=== PATIENT | female | born 1945 | race African-American/Black ===

== ENCOUNTER 2017-04-16 23:39 | Inpatient (IN) | payer MEDICARE, MEDICAID ==
[~2017-04-16] VITALS: Ht 160 cm; Wt 49.9 kg
[2017-04-16] MEDS ORDERED: SODIUM CHLORIDE 0.9% 500 ML IV ONE (23:59)
[2017-04-17] MEDS ORDERED: ASPIRIN 325MG EC TABLET PO ONE (00:15)
[2017-04-17 00:30] LABS: HEMATOCRIT. 41.1 % (36.0-48.0); HEMOGLOBIN. 13.3 g/dL (12.0-16.0); MEAN CORPUSCULAR HEMOGLOBIN 28.5 pg (28.0-32.0); MEAN CORPUSCULAR VOLUME 87.8 fL (81.0-99.0); MEAN PLATELET VOLUME 9.5 fl (7.4-10.4); PLATELET 210 x1000/uL (130-400); RED BLOOD CELL COUNT 4.68 mill/uL (4.2-5.4); RED CELL DISTRIBUTION WIDTH 15.9 % (11.6-14.6)
[2017-04-17 00:38] LABS: AMMONIA 30 uMol/L (<32)
[2017-04-17 00:48] LABS: CARBON DIOXIDE 27 mEq/L (21-32); CHLORIDE 101 mEq/L (98-107); CREATINE KINASE 41 IU/L (26-192); ETHANOL BLOOD < 10 mg/dL; TROPONIN I 0.18 ng/mL (0.00-0.04)
[2017-04-17 01:16] LABS: INR 1.4; PROTHROMBIN TIME 14.2 sec
[2017-04-17 02:17] LABS: PLATELET ESTIMATE NORMAL
[2017-04-17 08:54] LABS: CLARITY URINE CLOUDY (CLEAR); COLOR URINE YELLOW (YELLOW); GLUCOSE URINE NEGATIVE (NEGATIVE); KETONES URINE NEGATIVE (NEGATIVE); LEUKOCYTE ESTERASE URINE 1+ (NEGATIVE); NITRITE URINE NEGATIVE (NEGATIVE); OCCULT BLOOD URINE 3+ (NEGATIVE); PROTEIN URINE NEGATIVE (NEGATIVE); SPECIFIC GRAVITY URINE 1.015 (1.005-1.030)
[2017-04-17 09:29] LABS: *AMPHETAMINES SCREEN URINE NEGATIVE (NEGATIVE); *BARBITURATES SCREEN URINE NEGATIVE (NEGATIVE); *BENZODIAZEPINES SCREEN URINE NEGATIVE (NEGATIVE); *COCAINE SCREEN URINE NEGATIVE (NEGATIVE); CANNABINOID URINE SCREEN NEGATIVE (NEGATIVE); METHADONE URINE SCREEN NEGATIVE (NEGATIVE); OPIATES URINE SCREEN NEGATIVE (NEGATIVE); PHENCYCLIDINE URINE SCREEN NEGATIVE (NEGATIVE)
[2017-04-17 10:45] VITALS: BP 136/77
[2017-04-17] MEDS ORDERED: TRAM50TA3 PO (11:52)
[2017-04-17] MEDS ORDERED: AMLO10TA80 PO (11:52)
[2017-04-17] MEDS ORDERED: ALLO100T PO (11:52)
[2017-04-17] MEDS ORDERED: METO50TA5 PO (11:52)
[2017-04-17] MEDS ORDERED: IPRATROPIUM/ALBUTEROL 0.5-3(2.5)MG/3ML NEB INH PRN (12:00)
[2017-04-17] MEDS ORDERED: MAGNESIUM/ALUMINUM HYDROXIDE/SIMETHICONE 30ML UDC PO PRN (12:00)
[2017-04-17] MEDS ORDERED: GUAIFENESIN 200MG/10ML SUGAR FREE UDC PO PRN (12:00)
[2017-04-17] MEDS ORDERED: PAMIDRONATE DISODIUM 30 MG in SODIUM CHLORIDE 0.9% 500 ML IV NR (12:00)
[2017-04-17] MEDS ORDERED: NA PHOS,M-B/NA PHOS,DI-BA ENEMA 118ML PR PRN (12:00)
[2017-04-17] MEDS ORDERED: HYDROCODONE/ACETAMINOPHEN 10/325MG TABLET PO PRN (12:00)
[2017-04-17] MEDS ORDERED: DIPHENHYDRAMINE 50MG/ML VIAL IV PRN (12:00)
[2017-04-17] MEDS ORDERED: ACETAMINOPHEN 650MG/20.3ML UDC GT PRN (12:00)
[2017-04-17] MEDS ORDERED: DOCUSATE SODIUM 100MG CAPSULE PO PRN (12:00)
[2017-04-17] MEDS: SODIUM CHLORIDE 0.45% 1,000 ML IV SCH (13:46)
[2017-04-17] MEDS: SODIUM CHLORIDE 0.9% INJ 3ML FLUSH IVF SCH ×2 (13:47→21:39)
[2017-04-17 16:00] VITALS: BP 136/87
[2017-04-17 17:08] LABS: CARBON DIOXIDE 25 mEq/L (21-32); CHLORIDE 102 mEq/L (98-107)
[2017-04-17 20:00] VITALS: BP 112/81
[2017-04-18] VITALS: BP 123/73
[2017-04-18 04:00] VITALS: BP 135/79
[2017-04-18] MEDS: SODIUM CHLORIDE 0.45% 1,000 ML IV SCH ×3 (04:52→16:40)
[2017-04-18] MEDS: SODIUM CHLORIDE 0.9% INJ 3ML FLUSH IVF SCH ×3 (04:52→23:24)
[2017-04-18 08:00] VITALS: BP 119/60
[2017-04-18 11:53] LABS: BASOPHILS % 0.4 % (0.0-2.0); EOSINOPHILS % 0.6 % (0.0-5.0); HEMATOCRIT. 37.2 % (36.0-48.0); HEMOGLOBIN. 12.1 g/dL (12.0-16.0); LYMPHOCYTES % 7.5 % (20.0-50.0); MEAN CORPUSCULAR HEMOGLOBIN 28.5 pg (28.0-32.0); MEAN CORPUSCULAR VOLUME 87.4 fL (81.0-99.0); MEAN PLATELET VOLUME 9.2 fl (7.4-10.4); MONOCYTES % 8.4 % (2.0-8.0); NEUTROPHILS % 83.1 % (40.0-76.0); PLATELET 174 x1000/uL (130-400); RED BLOOD CELL COUNT 4.26 mill/uL (4.2-5.4); RED CELL DISTRIBUTION WIDTH 15.8 % (11.6-14.6)
[2017-04-18 12:00] VITALS: BP 138/76
[2017-04-18 12:00] LABS: INR 1.4; PROTHROMBIN TIME 14.7 sec
[2017-04-18 13:04] LABS: PREALBUMIN 8.3 mg/dL (20.0-40.0); T4 FREE 0.7 ng/dL (0.76-1.46)
[2017-04-18 16:00] VITALS: BP 129/88
[2017-04-18] MEDS ORDERED: POTASSIUM CHLORIDE INJ 40 MEQ in DEXT 5% WATER 250 ML IV NR (16:00)
[2017-04-18] MEDS: ENOXAPARIN 60MG/0.6ML SYR SUBCUT SCH (16:39)
[2017-04-18 18:49] LABS: CREATINE KINASE MB FRACTION 2.7 ng/mL (0.5-3.6); TROPONIN I 0.14 ng/mL (0.00-0.04)
[2017-04-18 20:00] VITALS: BP 101/66
[2017-04-19] VITALS: BP 119/85
[2017-04-19 00:44] LABS: CREATINE KINASE MB FRACTION 2.2 ng/mL (0.5-3.6); TROPONIN I 0.15 ng/mL (0.00-0.04)
[2017-04-19 04:00] VITALS: BP 125/85
[2017-04-19 06:36] LABS: INR 1.4; PARTIAL THROMBOPLASTIN TIME 36.5 sec (24.0-34.0); PROTHROMBIN TIME 14.2 sec
[2017-04-19 06:47] LABS: BASOPHILS % 0.2 % (0.0-2.0); EOSINOPHILS % 0.3 % (0.0-5.0); HEMATOCRIT. 37.5 % (36.0-48.0); HEMOGLOBIN. 12.1 g/dL (12.0-16.0); LYMPHOCYTES % 7.9 % (20.0-50.0); MEAN CORPUSCULAR HEMOGLOBIN 28.4 pg (28.0-32.0); MONOCYTES % 10.8 % (2.0-8.0); NEUTROPHILS % 80.8 % (40.0-76.0); PLATELET 176 x1000/uL (130-400); RED BLOOD CELL COUNT 4.26 mill/uL (4.2-5.4)
[2017-04-19] MEDS: SODIUM CHLORIDE 0.9% INJ 3ML FLUSH IVF SCH ×3 (06:59→20:46)
[2017-04-19 07:42] VITALS: BP 136/91
[2017-04-19 07:42] LABS: CREATINE KINASE MB FRACTION 2.7 ng/mL (0.5-3.6); PHOSPHORUS 3.4 mg/dL (2.5-4.9); TROPONIN I 0.16 ng/mL (0.00-0.04)
[2017-04-19] MEDS ORDERED: DIATR MEGLU/DIATRIZOATE SOLN 30ML PO SCH (07:45)
[2017-04-19] MEDS: ENOXAPARIN 60MG/0.6ML SYR SUBCUT SCH (09:00)
[2017-04-19] MEDS ORDERED: DIATR MEGLU/DIATRIZOATE SOLN 120ML ONE (10:42)
[2017-04-19 11:46] VITALS: BP 149/92
[2017-04-19] MEDS: SODIUM CHLORIDE 0.45% 1,000 ML IV SCH (13:09)
[2017-04-19] MEDS ORDERED: METOPROLOL TARTRATE 5MG/5ML VIAL IV NR (19:45)
[2017-04-19 20:00] VITALS: BP 115/74
[2017-04-19] MEDS: ONDANSETRON HCL 4MG/2ML VIAL IV PRN (20:44)
[2017-04-20] VITALS: BP 143/83
[2017-04-20 04:00] VITALS: BP 127/81
[2017-04-20] MEDS: ONDANSETRON HCL 4MG/2ML VIAL IV PRN ×2 (04:56→21:19)
[2017-04-20] MEDS: SODIUM CHLORIDE 0.45% 1,000 ML IV SCH ×4 (05:00→21:20)
[2017-04-20 08:00] VITALS: BP 125/79
[2017-04-20 09:11] LABS: HEMATOCRIT. 36.6 % (36.0-48.0); MEAN CORPUSCULAR HEMOGLOBIN 28.4 pg (28.0-32.0); MEAN CORPUSCULAR VOLUME 86.6 fL (81.0-99.0); MEAN PLATELET VOLUME 9.4 fl (7.4-10.4); PLATELET 174 x1000/uL (130-400); RED BLOOD CELL COUNT 4.23 mill/uL (4.2-5.4); RED CELL DISTRIBUTION WIDTH 15.7 % (11.6-14.6)
[2017-04-20 09:16] LABS: INR 1.4; PARTIAL THROMBOPLASTIN TIME 36.2 sec (24.0-34.0)
[2017-04-20 09:26] LABS: IMMUNOGLOBULIN G 1153 mg/dL (700-1600); IMMUNOGLOBULIN M 63 mg/dL (26-217)
[2017-04-20 09:40] LABS: PHOSPHORUS 4.2 mg/dL (2.5-4.9)
[2017-04-20] MEDS: ENOXAPARIN 60MG/0.6ML SYR SUBCUT SCH (10:05)
[2017-04-20 12:52] VITALS: BP 127/83
[2017-04-20 13:07] LABS: A/G RATIO 0.8 (0.7-1.7); ALBUMIN 2.8 g/dL (2.9-4.4); ALPHA-1-GLOBULIN 0.3 g/dL (0.0-0.4); BETA GLOBULIN 1.1 g/dL (0.7-1.3); GAMMA GLOBULINS 1.1 g/dL (0.4-1.8); GLOBULIN TOTAL 3.5 g/dL (2.2-3.9); KAPPA LT CHAINS FREE SERUM 65.13 mg/L (3.30-19.40); KAPPA/LAMBDA RATIO 1.33 (0.26-1.65); M-SPIKE Not Observed g/dL (Not Observed); TOTAL PROTEIN SERUM 6.3 g/dL (6.0-8.5)
[2017-04-20] MEDS: SODIUM CHLORIDE 0.9% INJ 3ML FLUSH IVF SCH ×2 (13:18→21:19)
[2017-04-20 13:44] LABS: PLATELET ESTIMATE NORMAL
[2017-04-20 16:06] VITALS: BP 129/95
[2017-04-20 20:00] VITALS: BP 116/82
[2017-04-21] VITALS: BP 122/85
[2017-04-21 04:00] VITALS: BP 134/92
[2017-04-21] MEDS: SODIUM CHLORIDE 0.9% INJ 3ML FLUSH IVF SCH ×3 (05:45→21:08)
[2017-04-21] MEDS: SODIUM CHLORIDE 0.45% 1,000 ML IV SCH ×2 (05:45→11:33)
[2017-04-21] MEDS: ONDANSETRON HCL 4MG/2ML VIAL IV PRN ×2 (05:52→11:32)
[2017-04-21 06:30] LABS: BASOPHILS % 0.1 % (0.0-2.0); EOSINOPHILS % 0.1 % (0.0-5.0); HEMATOCRIT. 36.1 % (36.0-48.0); HEMOGLOBIN. 11.7 g/dL (12.0-16.0); LYMPHOCYTES % 9.2 % (20.0-50.0); MEAN CORPUSCULAR HEMOGLOBIN 28.5 pg (28.0-32.0); MEAN CORPUSCULAR VOLUME 87.7 fL (81.0-99.0); MONOCYTES % 11.4 % (2.0-8.0); NEUTROPHILS % 79.2 % (40.0-76.0); PLATELET 173 x1000/uL (130-400); RED BLOOD CELL COUNT 4.12 mill/uL (4.2-5.4); RED CELL DISTRIBUTION WIDTH 16.1 % (11.6-14.6)
[2017-04-21 06:49] LABS: CHLORIDE 97 mEq/L (98-107)
[2017-04-21 06:55] LABS: CARBON DIOXIDE 22 mEq/L (21-32); PHOSPHORUS 3.8 mg/dL (2.5-4.9)
[2017-04-21 08:49] VITALS: BP 124/79
[2017-04-21 09:27] LABS: IMMUNOGLOBULIN A 456 mg/dL (64-422)
[2017-04-21 12:00] VITALS: BP 117/83
[2017-04-21] MEDS ORDERED: SODIUM CHLORIDE 0.9% 1,000 ML IV NR (12:30)
[2017-04-21 12:46] LABS: BG BASE EXCESS -2.2 mmol/L (-2.0-2.0); BG DEOXYHEMOGLOBIN 1.5 % (0.0-5.0); BG FRACTION INSPIRED OXYGEN 26; BG HCO3 ACT 20.9 mmol/L (22.0-26.0); BG METHEMOGLOBIN 0.8 % (0.0-1.5); BG OXYGEN SATURATION 98.5 % (92.0-98.5); BG OXYHEMOGLOBIN 97.7 % (94.0-97.0); BG PCO2 30.8 mmHg (35.0-45.0); BG PH 7.449 (7.350-7.450); BG PO2 130.9 mmHg (75.0-100.0); BG SAMPLE SITE RIGHT BRACHIAL; BG TOTAL HEMOGLOBIN 12.5 g/dL (12.0-18.0); BG VENT MODE NASAL CANNULA
[2017-04-21 13:16] LABS: ANGIOTENSION CONVERTING ENZYME 38 U/L (14-82)
[2017-04-21] MEDS: SODIUM CHLORIDE 0.9% 1,000 ML IV SCH ×2 (13:41→21:07)
[2017-04-21 16:25] VITALS: BP 114/64
[2017-04-21 16:47] LABS: CLARITY URINE CLOUDY (CLEAR); COLOR URINE YELLOW (YELLOW); GLUCOSE URINE NEGATIVE (NEGATIVE); KETONES URINE TRACE (NEGATIVE); LEUKOCYTE ESTERASE URINE TRACE (NEGATIVE); NITRITE URINE NEGATIVE (NEGATIVE); OCCULT BLOOD URINE 2+ (NEGATIVE); PROTEIN URINE NEGATIVE (NEGATIVE); SPECIFIC GRAVITY URINE 1.015 (1.005-1.030); UROBILINOGEN URINE 0.2 E.U./dL (0.2-1.0)
[2017-04-21 17:05] LABS: CREATININE URINE RANDOM 87.3 mg/dL
[2017-04-21 19:55] VITALS: BP 100/77
[2017-04-22 00:10] VITALS: BP 130/88
[2017-04-22 01:57] LABS: BASOPHILS % 0.2 % (0.0-2.0); EOSINOPHILS % 0.3 % (0.0-5.0); HEMATOCRIT. 33.1 % (36.0-48.0); HEMOGLOBIN. 10.9 g/dL (12.0-16.0); MEAN CORPUSCULAR HEMOGLOBIN 28.6 pg (28.0-32.0); MEAN CORPUSCULAR VOLUME 87.1 fL (81.0-99.0); MEAN PLATELET VOLUME 9.4 fl (7.4-10.4); MONOCYTES % 10.8 % (2.0-8.0); NEUTROPHILS % 79.7 % (40.0-76.0); PLATELET 161 x1000/uL (130-400); RED CELL DISTRIBUTION WIDTH 15.9 % (11.6-14.6)
[2017-04-22 02:53] LABS: PHOSPHORUS 3.9 mg/dL (2.5-4.9)
[2017-04-22] MEDS: SODIUM CHLORIDE 0.9% 1,000 ML IV SCH ×4 (03:33→23:17)
[2017-04-22 04:00] VITALS: BP 124/71
[2017-04-22] MEDS ORDERED: BUPIVACAINE HCL 0.5% (5MG/ML) 50ML ONE (06:53)
[2017-04-22] MEDS ORDERED: FENTANYL CITRATE/PF 50MCG/ML 2ML VIAL ONE (07:49)
[2017-04-22] MEDS ORDERED: MIDAZOLAM HCL 2 MG/2 ML VIAL ONE (07:49)
[2017-04-22] MEDS ORDERED: DEXT 5%/0.45% NACL KCL 20MEQ/L 1,000 ML IV SCH (07:58)
[2017-04-22] MEDS ORDERED: MORPHINE SULFATE 4 MG/ML CPJ (NOT FOR IM USE) IV PRN (08:00)
[2017-04-22] MEDS ORDERED: ONDANSETRON HCL 4MG/2ML VIAL IV PRN ×2 (08:00→08:30)
[2017-04-22] MEDS ORDERED: SKIN ADHESIVE 0.7 GM EA TOP ONE (08:07)
[2017-04-22] MEDS ORDERED: LABETALOL HCL 20MG/4ML CARPUJECT IV PRN (08:30)
[2017-04-22] MEDS ORDERED: HYDROMORPHONE HCL/PF 2MG/ML CPJ IV PRN (08:30)
[2017-04-22] MEDS ORDERED: MEPERIDINE HCL/PF 25MG/ML CPJ IV PRN (08:30)
[2017-04-22] MEDS ORDERED: GLYCOPYRROLATE 0.2 MG/ML 2ML VIAL ONE (08:54)
[2017-04-22] MEDS ORDERED: NEOSTIGMINE METHYLSULFATE 1MG/ML 10 ML VIAL ONE (08:54)
[2017-04-22 09:51] LABS: BG BASE EXCESS -7.8 mmol/L (-2.0-2.0); BG CARBOXYHEMOGLOBIN 0.3 % (0.5-1.5); BG DEOXYHEMOGLOBIN 0.7 % (0.0-5.0); BG FRACTION INSPIRED OXYGEN 100; BG METHEMOGLOBIN 0.8 % (0.0-1.5); BG OXYGEN SATURATION 99.3 % (92.0-98.5); BG OXYHEMOGLOBIN 98.2 % (94.0-97.0); BG PCO2 32.3 mmHg (35.0-45.0); BG PH 7.338 (7.350-7.450); BG PO2 255.8 mmHg (75.0-100.0); BG SAMPLE SITE RIGHT BRACHIAL; BG TIDAL VOLUME(mL) 500 mL; BG TOTAL HEMOGLOBIN 11.3 g/dL (12.0-18.0); BG VENT MODE VENT - A/C; BG VENT RATE 10 set
[2017-04-22] MEDS ORDERED: CEFAZOLIN 1000MG PREMIX 50 ML IV SCH (11:00)
[2017-04-22 11:56] LABS: BG BASE EXCESS -6.7 mmol/L (-2.0-2.0); BG CARBOXYHEMOGLOBIN 0.3 % (0.5-1.5); BG DEOXYHEMOGLOBIN 1.3 % (0.0-5.0); BG FRACTION INSPIRED OXYGEN 60; BG HCO3 ACT 17.3 mmol/L (22.0-26.0); BG METHEMOGLOBIN 0.6 % (0.0-1.5); BG OXYGEN SATURATION 98.7 % (92.0-98.5); BG OXYHEMOGLOBIN 97.8 % (94.0-97.0); BG PH 7.379 (7.350-7.450); BG PO2 148.8 mmHg (75.0-100.0); BG SAMPLE SITE RIGHT BRACHIAL; BG TOTAL HEMOGLOBIN 11.1 g/dL (12.0-18.0); BG VENT MODE MASK - SIMPLE
[2017-04-22 12:00] VITALS: BP 121/87
[2017-04-22 13:26] LABS: 25-HYDROXY VITAMIN D3 13 ng/mL (.); VITAMIN D 1-25 DIHYDROXY < 5.0 pg/mL (19.9-79.3)
[2017-04-22] MEDS: CEFAZOLIN 1000MG PREMIX 50 ML IV SCH ×2 (13:47→22:46)
[2017-04-22] MEDS: FAMOTIDINE 20MG/2ML VIAL IV SCH (13:48)
[2017-04-22] MEDS: MORPHINE SULFATE 2 MG/ML CPJ (NOT FOR IM USE) IV PRN (13:59)
[2017-04-22] MEDS: SODIUM CHLORIDE 0.9% INJ 3ML FLUSH IVF SCH ×2 (14:00→15:46)
[2017-04-22 16:00] VITALS: BP 107/72
[2017-04-22 20:00] VITALS: BP 109/74
[2017-04-23] VITALS: BP 117/75
[2017-04-23] MEDS: MORPHINE SULFATE 2 MG/ML CPJ (NOT FOR IM USE) IV PRN ×3 (00:12→17:16)
[2017-04-23 04:00] VITALS: BP 109/69
[2017-04-23] MEDS: SODIUM CHLORIDE 0.9% 1,000 ML IV SCH ×2 (05:59→15:04)
[2017-04-23] MEDS: SODIUM CHLORIDE 0.9% INJ 3ML FLUSH IVF SCH ×4 (06:02→21:28)
[2017-04-23 06:25] LABS: HEMATOCRIT. 30.4 % (36.0-48.0); HEMOGLOBIN. 9.9 g/dL (12.0-16.0); MEAN CORPUSCULAR HEMOGLOBIN 28.4 pg (28.0-32.0); MEAN CORPUSCULAR VOLUME 87.6 fL (81.0-99.0); MEAN PLATELET VOLUME 9.6 fl (7.4-10.4); PLATELET 148 x1000/uL (130-400); RED BLOOD CELL COUNT 3.47 mill/uL (4.2-5.4)
[2017-04-23 06:29] LABS: INR 1.6; PARTIAL THROMBOPLASTIN TIME 43.4 sec (24.0-34.0); PROTHROMBIN TIME 16.5 sec
[2017-04-23 07:35] LABS: PHOSPHORUS 2.7 mg/dL (2.5-4.9); PREALBUMIN 4.5 mg/dL (20.0-40.0)
[2017-04-23 08:00] VITALS: BP 119/76
[2017-04-23] MEDS: FAMOTIDINE 20MG/2ML VIAL IV SCH (08:25)
[2017-04-23 11:57] LABS: PLATELET ESTIMATE NORMAL
[2017-04-23 12:00] VITALS: BP 138/83
[2017-04-23 13:07] LABS: *CREATININE RANDOM URINE 99.6 mg/dL (Not Estab.); MICROALBUMIN RANDOM URINE 58.3 ug/mL (Not Estab.); MICROALBUMIN/CREATININE RATIO 58.5 mg/g creat (0.0-30.0)
[2017-04-23 14:32] LABS: BG BASE EXCESS -7.4 mmol/L (-2.0-2.0); BG CARBOXYHEMOGLOBIN 0.3 % (0.5-1.5); BG DEOXYHEMOGLOBIN 2.4 % (0.0-5.0); BG FRACTION INSPIRED OXYGEN 28; BG HCO3 ACT 16.7 mmol/L (22.0-26.0); BG METHEMOGLOBIN 0.6 % (0.0-1.5); BG OXYGEN SATURATION 97.6 % (92.0-98.5); BG OXYHEMOGLOBIN 96.7 % (94.0-97.0); BG PCO2 29.2 mmHg (35.0-45.0); BG PH 7.375 (7.350-7.450); BG PO2 103.2 mmHg (75.0-100.0); BG SAMPLE SITE RIGHT BRACHIAL; BG VENT MODE NASAL CANNULA
[2017-04-23] MEDS: METOPROLOL TARTRATE 25MG TABLET PO SCH ×2 (15:23→21:28)
[2017-04-23 16:00] VITALS: BP 152/96
[2017-04-23 20:00] VITALS: BP 129/80
[2017-04-23] MEDS: TOTAL PARENTERAL NUTRITION 1,000 ML IV SCH (21:57)
[2017-04-24] VITALS: BP 117/90
[2017-04-24] MEDS: BLOOD SUGAR DIAGNOSTIC STRIP TEST SCH ×2 (00:32)
[2017-04-24 04:00] VITALS: BP 144/101
[2017-04-24 05:27] LABS: HEMATOCRIT. 32.6 % (36.0-48.0); HEMOGLOBIN. 10.5 g/dL (12.0-16.0); MEAN CORPUSCULAR HEMOGLOBIN 28.7 pg (28.0-32.0); MEAN CORPUSCULAR VOLUME 89.1 fL (81.0-99.0); MEAN PLATELET VOLUME 9.3 fl (7.4-10.4); PLATELET 138 x1000/uL (130-400); RED BLOOD CELL COUNT 3.67 mill/uL (4.2-5.4); RED CELL DISTRIBUTION WIDTH 16.7 % (11.6-14.6)
[2017-04-24] MEDS: SODIUM CHLORIDE 0.9% INJ 3ML FLUSH IVF SCH ×3 (05:46→22:42)
[2017-04-24 06:42] LABS: PHOSPHORUS 1.4 mg/dL (2.5-4.9)
[2017-04-24 07:57] LABS: NUCLEATED RED BLOOD CELLS 2 /100 WBC; PLATELET ESTIMATE NORMAL
[2017-04-24 08:00] VITALS: BP 170/110
[2017-04-24] MEDS ORDERED: PHYTONADIONE 10MG/ML AMP SUBCUT SCH (09:00)
[2017-04-24] MEDS: FAMOTIDINE 20MG/2ML VIAL IV SCH (09:26)
[2017-04-24] MEDS: CLONIDINE 0.1MG TABLET PO PRN (09:27)
[2017-04-24] MEDS: METOPROLOL TARTRATE 25MG TABLET PO SCH ×2 (09:27→20:04)
[2017-04-24] MEDS: TOTAL PARENTERAL NUTRITION 1,000 ML IV SCH ×2 (09:28→22:55)
[2017-04-24] MEDS ORDERED: POTASSIUM PHOS,M-BASIC-D-BASIC 20 MMOL in DEXT 5% WATER 250 ML IV NR (11:30)
[2017-04-24] MEDS ORDERED: AMLODIPINE 10MG TABLET PO NR (11:30)
[2017-04-24 12:00] VITALS: BP 183/115
[2017-04-24] MEDS ORDERED: DEXTROSE 50% WATER 50ML SYRINGE IV PRN (12:00)
[2017-04-24] MEDS ORDERED: BLOOD SUGAR DIAGNOSTIC STRIP TEST SCH (12:10)
[2017-04-24] MEDS: INSULIN LISPRO 100 UNITS/ML SUBCUT SCH ×2 (12:31→17:28)
[2017-04-24] MEDS ORDERED: HYDROMORPHONE HCL/PF 2MG/ML CPJ IV PRN (14:00)
[2017-04-24] MEDS ORDERED: CLONIDINE HCL 0.2MG/24HR PATCH TD SCH (14:30)
[2017-04-24] MEDS: HYDRALAZINE HCL 25MG TABLET PO SCH ×2 (14:52→21:41)
[2017-04-24] MEDS: DEXTROSE 5% WATER 1,000 ML IV SCH (14:53)
[2017-04-24] MEDS ORDERED: POTASSIUM PHOS,M-BASIC-D-BASIC 10 MMOL in DEXT 5% WATER 246.6667 ML IV NR (15:00)
[2017-04-24 16:00] VITALS: BP 149/93
[2017-04-24] MEDS ORDERED: LORAZEPAM 2MG/ML CPJ IM NR (17:00)
[2017-04-24 17:41] LABS: AMMONIA 20 uMol/L (<32)
[2017-04-24 19:33] LABS: CLARITY URINE CLEAR (CLEAR); COLOR URINE YELLOW (YELLOW); GLUCOSE URINE 2+ (NEGATIVE); KETONES URINE NEGATIVE (NEGATIVE); LEUKOCYTE ESTERASE URINE NEGATIVE (NEGATIVE); NITRITE URINE NEGATIVE (NEGATIVE); OCCULT BLOOD URINE TRACE (NEGATIVE); PROTEIN URINE NEGATIVE (NEGATIVE); SPECIFIC GRAVITY URINE 1.014 (1.005-1.030); UROBILINOGEN URINE 0.2 E.U./dL (0.2-1.0)
[2017-04-24 20:00] VITALS: BP 153/93
[2017-04-24] MEDS: ACETAMINOPHEN 650MG SUPP PR PRN (21:42)
[2017-04-25] VITALS (7 sets, daily range): BP systolic 122–163; BP diastolic 77–99
[2017-04-25] MEDS: INSULIN LISPRO 100 UNITS/ML SUBCUT SCH ×5 (00:29→23:14)
[2017-04-25] MEDS: HYDRALAZINE HCL 25MG TABLET PO SCH ×3 (06:21→23:12)
[2017-04-25] MEDS: ACETAMINOPHEN 650MG SUPP PR PRN ×2 (06:48→12:50)
[2017-04-25 07:34] LABS: CARBON DIOXIDE 21 mEq/L (21-32); CHLORIDE 123 mEq/L (98-107)
[2017-04-25 07:54] LABS: EOSINOPHILS % 0.3 % (0.0-5.0); HEMATOCRIT. 31.6 % (36.0-48.0); HEMOGLOBIN. 10.2 g/dL (12.0-16.0); LYMPHOCYTES % 9.3 % (20.0-50.0); MEAN CORPUSCULAR VOLUME 86.5 fL (81.0-99.0); MONOCYTES % 8.8 % (2.0-8.0); NEUTROPHILS % 81.6 % (40.0-76.0); RED BLOOD CELL COUNT 3.65 mill/uL (4.2-5.4); RED CELL DISTRIBUTION WIDTH 17.1 % (11.6-14.6)
[2017-04-25 08:06] LABS: PHOSPHORUS 0.4 mg/dL (2.5-4.9)
[2017-04-25] MEDS: TOTAL PARENTERAL NUTRITION 1,000 ML IV SCH ×2 (08:47→17:30)
[2017-04-25] MEDS: CLONIDINE 0.1MG TABLET PO PRN (08:47)
[2017-04-25] MEDS: FAMOTIDINE 20MG/2ML VIAL IV SCH (08:47)
[2017-04-25] MEDS: METOPROLOL TARTRATE 25MG TABLET PO SCH (08:50)
[2017-04-25] MEDS ORDERED: DEXT 5% WATER 500 ML IV ONE (10:00)
[2017-04-25 10:09] LABS: PLATELET ESTIMATE SLIGHTLY DECREASED
[2017-04-25 10:10] LABS: MEAN PLATELET VOLUME 9.2 fl (7.4-10.4)
[2017-04-25 10:11] LABS: PLATELET 115 x1000/uL (130-400)
[2017-04-25] MEDS ORDERED: MAGNESIUM 2 G PREMIX 50 ML IV SCH (10:30)
[2017-04-25] MEDS ORDERED: POTASSIUM PHOS,M-BASIC-D-BASIC 30 MMOL in DEXT 5% WATER 500 ML IV SCH (11:00)
[2017-04-25] MEDS ORDERED: VANCOMYCIN 1 G PREMIX 200 ML IV SCH (12:00)
[2017-04-25] MEDS ORDERED: TOTAL PARENTERAL NUTRITION 1,000 ML IV SCH (12:00)
[2017-04-25] MEDS: DEXTROSE 5% WATER 1,000 ML IV SCH (12:31)
[2017-04-25 14:41] LABS: CLARITY URINE CLEAR (CLEAR); COLOR URINE YELLOW (YELLOW); GLUCOSE URINE NEGATIVE (NEGATIVE); KETONES URINE NEGATIVE (NEGATIVE); LEUKOCYTE ESTERASE URINE NEGATIVE (NEGATIVE); NITRITE URINE NEGATIVE (NEGATIVE); OCCULT BLOOD URINE TRACE (NEGATIVE); PROTEIN URINE NEGATIVE (NEGATIVE); SPECIFIC GRAVITY URINE 1.014 (1.005-1.030); UROBILINOGEN URINE 0.2 E.U./dL (0.2-1.0)
[2017-04-25] MEDS: BLOOD SUGAR DIAGNOSTIC STRIP TEST SCH ×3 (17:15→23:43)
[2017-04-25 18:54] LABS: CARBON DIOXIDE 22 mEq/L (21-32); CHLORIDE 123 mEq/L (98-107); PHOSPHORUS 2.2 mg/dL (2.5-4.9)
[2017-04-25] MEDS ORDERED: FAT EMULSIONS 500 ML IV SCH (21:00)
[2017-04-25] MEDS: SODIUM CHLORIDE 0.9% INJ 3ML FLUSH IVF SCH (21:16)
[2017-04-25] MEDS: METOPROLOL TARTRATE 50MG TABLET PO SCH (21:16)
[2017-04-26] VITALS (7 sets, daily range): BP systolic 100–143; BP diastolic 60–94
[2017-04-26] MEDS: TOTAL PARENTERAL NUTRITION 1,000 ML IV SCH ×2 (05:05→18:28)
[2017-04-26] MEDS: HYDRALAZINE HCL 25MG TABLET PO SCH ×3 (05:06→22:00)
[2017-04-26] MEDS: BLOOD SUGAR DIAGNOSTIC STRIP TEST SCH ×4 (06:19→23:39)
[2017-04-26 06:26] LABS: BASOPHILS % 0.3 % (0.0-2.0); EOSINOPHILS % 0.4 % (0.0-5.0); HEMATOCRIT. 29.1 % (36.0-48.0); LYMPHOCYTES % 10.8 % (20.0-50.0); MEAN CORPUSCULAR VOLUME 87.3 fL (81.0-99.0); MEAN PLATELET VOLUME 9.5 fl (7.4-10.4); MONOCYTES % 9.8 % (2.0-8.0); NEUTROPHILS % 78.7 % (40.0-76.0); PLATELET 117 x1000/uL (130-400); RED BLOOD CELL COUNT 3.33 mill/uL (4.2-5.4); RED CELL DISTRIBUTION WIDTH 17.2 % (11.6-14.6)
[2017-04-26] MEDS: SODIUM CHLORIDE 0.9% INJ 3ML FLUSH IVF SCH ×3 (06:26→22:23)
[2017-04-26] MEDS: INSULIN LISPRO 100 UNITS/ML SUBCUT SCH ×3 (06:26→18:22)
[2017-04-26] MEDS: ACETAMINOPHEN 325MG TABLET PO PRN (08:04)
[2017-04-26] MEDS: ACETAMINOPHEN 650MG SUPP PR PRN ×2 (08:14→17:42)
[2017-04-26] MEDS: VANCOMYCIN 1 G PREMIX 200 ML IV SCH (08:32)
[2017-04-26] MEDS: FAMOTIDINE 20MG/2ML VIAL IV SCH (10:06)
[2017-04-26] MEDS: METOPROLOL TARTRATE 50MG TABLET PO SCH ×2 (10:06→21:00)
[2017-04-26 11:14] LABS: HEMOGLOBIN. 9.8 g/dL (12.0-16.0)
[2017-04-26 11:15] LABS: MEAN CORPUSCULAR HEMOGLOBIN 29.4 pg (28.0-32.0)
[2017-04-26 11:47] LABS: CHLORIDE 124 mEq/L (98-107)
[2017-04-26 11:53] LABS: CARBON DIOXIDE 20 mEq/L (21-32)
[2017-04-26 11:57] LABS: HDL CHOLESTEROL 18 mg/dL (40-59); LDL CHOLESTEROL 22 mg/dL (5-100); PHOSPHORUS 1.6 mg/dL (2.5-4.9)
[2017-04-26] MEDS: MEROPENEM 500 MG in SODIUM CHLORIDE 0.9% 50 ML IV SCH (14:18)
[2017-04-26] MEDS ORDERED: POTASSIUM PHOS,M-BASIC-D-BASIC 30 MMOL in DEXT 5% WATER 500 ML IV ONE (15:00)
[2017-04-26] MEDS ORDERED: TOTAL PARENTERAL NUTRITION 1,000 ML IV SCH (21:00)
[2017-04-27] VITALS: BP 112/68
[2017-04-27] MEDS: MEROPENEM 500 MG in SODIUM CHLORIDE 0.9% 50 ML IV SCH ×2 (00:35→12:52)
[2017-04-27] MEDS: INSULIN LISPRO 100 UNITS/ML SUBCUT SCH ×4 (00:40→17:06)
[2017-04-27] MEDS: VANCOMYCIN 1 G PREMIX 200 ML IV SCH ×2 (03:00→20:44)
[2017-04-27 04:00] VITALS: BP 145/88
[2017-04-27] MEDS: BLOOD SUGAR DIAGNOSTIC STRIP TEST SCH ×3 (06:31→17:06)
[2017-04-27] MEDS: SODIUM CHLORIDE 0.9% INJ 3ML FLUSH IVF SCH ×3 (06:35→21:30)
[2017-04-27] MEDS: HYDRALAZINE HCL 25MG TABLET PO SCH (06:35)
[2017-04-27 06:58] LABS: HEMATOCRIT 26.8 % (36.0-48.0); HEMATOCRIT. 26.8 % (36.0-48.0); HEMOGLOBIN 8.3 g/dL (12.0-16.0); HEMOGLOBIN. 8.3 g/dL (12.0-16.0); MEAN CORPUSCULAR HEMOGLOBIN 27.8 pg (28.0-32.0); MEAN CORPUSCULAR VOLUME 89.2 fL (81.0-99.0); MEAN PLATELET VOLUME 10.1 fl (7.4-10.4); PLATELET 70 x1000/uL (130-400)
[2017-04-27 08:00] VITALS: BP 100/64
[2017-04-27] MEDS: METOPROLOL TARTRATE 50MG TABLET PO SCH ×2 (09:00→21:27)
[2017-04-27] MEDS: ENOXAPARIN 60MG/0.6ML SYR SUBCUT SCH (09:00)
[2017-04-27] MEDS: FAMOTIDINE 20MG/2ML VIAL IV SCH (09:48)
[2017-04-27 10:03] LABS: CHLORIDE 117 mEq/L (98-107)
[2017-04-27 10:09] LABS: CARBON DIOXIDE 24 mEq/L (21-32)
[2017-04-27 12:00] VITALS: BP 97/65
[2017-04-27] MEDS: HYDRALAZINE HCL 50MG TABLET PO SCH ×2 (14:00→22:00)
[2017-04-27 14:06] LABS: NUCLEATED RED BLOOD CELLS 2 /100 WBC
[2017-04-27 14:07] LABS: PLATELET ESTIMATE DECREASED
[2017-04-27 16:00] VITALS: BP 119/74
[2017-04-27 20:00] VITALS: BP 109/74
[2017-04-27] MEDS: DEXTROSE 5% WATER 1,000 ML IV SCH (21:28)
[2017-04-28] VITALS: BP 140/84
[2017-04-28] MEDS: MEROPENEM 500 MG in SODIUM CHLORIDE 0.9% 50 ML IV SCH ×2 (01:35→12:41)
[2017-04-28 04:00] VITALS: BP 144/83
[2017-04-28] MEDS: SODIUM CHLORIDE 0.9% INJ 3ML FLUSH IVF SCH ×3 (06:01→22:17)
[2017-04-28] MEDS: HYDRALAZINE HCL 50MG TABLET PO SCH ×3 (06:02→21:34)
[2017-04-28 06:58] LABS: CARBON DIOXIDE 24 mEq/L (21-32); CHLORIDE 111 mEq/L (98-107); PHOSPHORUS 3.6 mg/dL (2.5-4.9)
[2017-04-28 07:16] LABS: BASOPHILS % 0.5 % (0.0-2.0); EOSINOPHILS % 0.1 % (0.0-5.0); HEMATOCRIT. 26.2 % (36.0-48.0); HEMOGLOBIN. 8.6 g/dL (12.0-16.0); LYMPHOCYTES % 14.4 % (20.0-50.0); MEAN CORPUSCULAR HEMOGLOBIN 28.2 pg (28.0-32.0); MEAN CORPUSCULAR VOLUME 86.4 fL (81.0-99.0); MEAN PLATELET VOLUME 10.1 fl (7.4-10.4); MONOCYTES % 13.4 % (2.0-8.0); NEUTROPHILS % 71.6 % (40.0-76.0); PLATELET 68 x1000/uL (130-400); RED BLOOD CELL COUNT 3.03 mill/uL (4.2-5.4); RED CELL DISTRIBUTION WIDTH 17.1 % (11.6-14.6)
[2017-04-28 08:00] VITALS: BP 92/66
[2017-04-28] MEDS: METOPROLOL TARTRATE 50MG TABLET PO SCH ×2 (08:24→21:35)
[2017-04-28] MEDS: FAMOTIDINE 20MG/2ML VIAL IV SCH (08:24)
[2017-04-28] MEDS ORDERED: BLOOD SUGAR DIAGNOSTIC STRIP TEST SCH (09:00)
[2017-04-28] MEDS: DEXTROSE 5% WATER 1,000 ML IV SCH ×2 (09:47→22:17)
[2017-04-28 12:46] VITALS: BP 102/63
[2017-04-28] MEDS: VANCOMYCIN 750 MG PREMIX 150 ML IV SCH (15:02)
[2017-04-28 16:12] VITALS: BP 99/66
[2017-04-28 20:00] VITALS: BP 130/81
[2017-04-29] VITALS (7 sets, daily range): BP systolic 103–141; BP diastolic 60–97
[2017-04-29] MEDS: DEXTROSE 5% WATER 1,000 ML IV SCH ×2 (00:43→13:26)
[2017-04-29] MEDS: MEROPENEM 500 MG in SODIUM CHLORIDE 0.9% 50 ML IV SCH ×2 (00:53→13:27)
[2017-04-29] MEDS: HYDRALAZINE HCL 50MG TABLET PO SCH ×3 (05:30→22:03)
[2017-04-29 06:02] LABS: HEMATOCRIT. 26.5 % (36.0-48.0); HEMOGLOBIN. 8.6 g/dL (12.0-16.0); MEAN CORPUSCULAR HEMOGLOBIN 28.3 pg (28.0-32.0); MEAN CORPUSCULAR VOLUME 86.8 fL (81.0-99.0); MEAN PLATELET VOLUME 10.7 fl (7.4-10.4); PLATELET 86 x1000/uL (130-400); RED BLOOD CELL COUNT 3.05 mill/uL (4.2-5.4); RED CELL DISTRIBUTION WIDTH 16.8 % (11.6-14.6)
[2017-04-29] MEDS: SODIUM CHLORIDE 0.9% INJ 3ML FLUSH IVF SCH ×2 (06:50→13:27)
[2017-04-29 07:11] LABS: CARBON DIOXIDE 21 mEq/L (21-32); CHLORIDE 105 mEq/L (98-107); PHOSPHORUS 4.1 mg/dL (2.5-4.9)
[2017-04-29] MEDS: VANCOMYCIN 750 MG PREMIX 150 ML IV SCH (09:33)
[2017-04-29] MEDS: FAMOTIDINE 20MG/2ML VIAL IV SCH (09:33)
[2017-04-29] MEDS: METOPROLOL TARTRATE 50MG TABLET PO SCH ×2 (09:34→20:41)
[2017-04-29 11:00] LABS: NUCLEATED RED BLOOD CELLS 9 /100 WBC; PLATELET ESTIMATE DECREASED
[2017-04-29] MEDS: ACETAMINOPHEN 325MG TABLET PO PRN (20:41)
[2017-04-29] MEDS: ACETAMINOPHEN 650MG SUPP PR PRN (21:38)
== END 2017-04-29 22:32 | DRG 853 ==
LOC: ER 23:41 → 8WST 04-17 03:55
PROVIDERS: ADMIT Family Medicine; ATTEND Family Medicine
PROC: 0DN80ZZ Release Small Intestine, Open Approach (ICD-10-PCS; 2017-04-22)
PROC: 0FB00ZX Excision of Liver, Open Approach, Diagnostic (ICD-10-PCS; 2017-04-22)
PROC: 0WQF0ZZ Repair Abdominal Wall, Open Approach (ICD-10-PCS; 2017-04-22)
PROC: 02H633Z Insertion of Infusion Device into Right Atrium, Percutaneous Approach (ICD-10-PCS; principal; 2017-04-23)
PROC: B518ZZA Fluoroscopy of Superior Vena Cava, Guidance (ICD-10-PCS; 2017-04-23)
PROC: B54MZZA Ultrasonography of Right Upper Extremity Veins, Guidance (ICD-10-PCS; 2017-04-23)
DX: A41.9 Sepsis, unspecified organism (principal); G93.41 Metabolic encephalopathy; N17.0 Acute kidney failure with tubular necrosis; E43 Unspecified severe protein-calorie malnutrition; C78.7 Secondary malignant neoplasm of liver and intrahepatic bile duct; K56.60 Unspecified intestinal obstruction; C79.51 Secondary malignant neoplasm of bone; E87.0 Hyperosmolality and hypernatremia; E87.2 Acidosis; I67.82 Cerebral ischemia; N39.0 Urinary tract infection, site not specified; Z68.1 Body mass index [BMI] 19.9 or less, adult; C78.00 Secondary malignant neoplasm of unspecified lung; E83.52 Hypercalcemia; I48.91 Unspecified atrial fibrillation; B96.5 Pseudomonas (aeruginosa) (mallei) (pseudomallei) as the cause of diseases classified elsewhere; C50.919 Malignant neoplasm of unspecified site of unspecified female breast; D25.9 Leiomyoma of uterus, unspecified; D64.9 Anemia, unspecified; I10 Essential (primary) hypertension; K42.9 Umbilical hernia without obstruction or gangrene; M20.42 Other hammer toe(s) (acquired), left foot; M10.9 Gout, unspecified; M19.90 Unspecified osteoarthritis, unspecified site; R73.9 Hyperglycemia, unspecified; Z79.899 Other long term (current) drug therapy; S32.592D Other specified fracture of left pubis, subsequent encounter for fracture with routine healing; S32.591D Other specified fracture of right pubis, subsequent encounter for fracture with routine healing; Z82.49 Family history of ischemic heart disease and other diseases of the circulatory system
CPT/HCPCS: 36415; 36569; 36600; 70450; 70551; 71010; 71250; 74000; 74176; 74250; 76770; 76937; 77001; 78582; 80048; 80053; 80061; 80202; 80305; 81001; 82043; 82105; 82140; 82164; 82306; 82330; 82375; 82378; 82550; 82553; 82570; 82652; 82784; 82805; 82962; 83036; 83735; 83880; 83883; 83935; 83970; 84100; 84134; 84155; 84156; 84165; 84300; 84439; 84443; 84478; 84484; 85025; 85027; 85379; 85610; 85730; 86300; 86334; 86850; 86900; 87040; 87077; 87086; 87186; 88307; 88331; 93005; 93306; 93970; 94002; 96360; 96361; 97110; 97162; 97164; 97166; 97530; 99285; A9558; C1725; C1893; G0482; J0690; J1200; J1650; J1815; J2185; J2250; J2270; J2405; J2430; J2710; J3010; J3370; J3430; J3475; J3480; J3490; J7030; J7040; J7050; J7060; J7070; J7120; Q9963; A4315

== ENCOUNTER 2017-07-24 00:10 | Inpatient (IN) | payer MEDICARE, MEDICAID ==
[~2017-07-24] VITALS: Ht 167.6 cm; Wt 65.3 kg
[~2017-07-24 00:10] MED LIST: METO50TA5 PO
[2017-07-24 02:29] LABS: HEMATOCRIT. 30.3 % (36.0-48.0); HEMOGLOBIN. 9.6 g/dL (12.0-16.0); MEAN CORPUSCULAR HEMOGLOBIN 28.3 pg (28.0-32.0); MEAN PLATELET VOLUME 8.9 fl (7.4-10.4); PLATELET 190 x1000/uL (130-400); RED CELL DISTRIBUTION WIDTH 19.8 % (11.6-14.6)
[2017-07-24 02:37] LABS: BG CARBOXYHEMOGLOBIN 0.1 % (0.5-1.5); BG DEOXYHEMOGLOBIN 2.8 % (0.0-5.0); BG FRACTION INSPIRED OXYGEN 28; BG METHEMOGLOBIN 0.3 % (0.0-1.5); BG OXYGEN SATURATION 97.2 % (92.0-98.5); BG OXYHEMOGLOBIN 96.8 % (94.0-97.0); BG PCO2 30.4 mmHg (35.0-45.0); BG PO2 97.5 mmHg (75.0-100.0); BG SAMPLE SITE RIGHT BRACHIAL; BG TOTAL HEMOGLOBIN 10.7 g/dL (12.0-18.0); BG VENT MODE NASAL CANNULA
[2017-07-24 02:39] LABS: CARBON DIOXIDE 21 mEq/L (21-32); CHLORIDE 118 mEq/L (98-107); ETHANOL BLOOD < 10 mg/dL; TROPONIN I 0.02 ng/mL (0.00-0.04)
[2017-07-24 02:43] LABS: AMMONIA 80 uMol/L (<32)
[2017-07-24] MEDS ORDERED: LEVOFLOXACIN 750MG PREMIX 150 ML IV NR (02:45)
[2017-07-24] MEDS ORDERED: SODIUM CHLORIDE 0.9% 500 ML IV ONE (03:48)
[2017-07-24 04:15] LABS: CLARITY URINE CLOUDY (CLEAR); COLOR URINE DARK YELLOW (YELLOW); GLUCOSE URINE NEGATIVE (NEGATIVE); KETONES URINE TRACE (NEGATIVE); LEUKOCYTE ESTERASE URINE 2+ (NEGATIVE); NITRITE URINE NEGATIVE (NEGATIVE); OCCULT BLOOD URINE TRACE (NEGATIVE); PROTEIN URINE 1+ (NEGATIVE); SPECIFIC GRAVITY URINE 1.018 (1.005-1.030)
[2017-07-24 04:38] LABS: NUCLEATED RED BLOOD CELLS 4 /100 WBC
[2017-07-24 04:39] LABS: PLATELET ESTIMATE NORMAL
[2017-07-24 04:46] LABS: *AMPHETAMINES SCREEN URINE NEGATIVE (NEGATIVE); *BARBITURATES SCREEN URINE NEGATIVE (NEGATIVE); *BENZODIAZEPINES SCREEN URINE NEGATIVE (NEGATIVE); *COCAINE SCREEN URINE NEGATIVE (NEGATIVE); CANNABINOID URINE SCREEN NEGATIVE (NEGATIVE); METHADONE URINE SCREEN NEGATIVE (NEGATIVE); OPIATES URINE SCREEN NEGATIVE (NEGATIVE); PHENCYCLIDINE URINE SCREEN NEGATIVE (NEGATIVE)
[2017-07-24 08:53] VITALS: BP 141/89
[2017-07-24 08:58] VITALS: BP 141/89
[2017-07-24 11:20] VITALS: BP 148/89
[2017-07-24 15:36] VITALS: BP 149/92
[2017-07-24] MEDS: MORPHINE SULFATE 4 MG/ML CPJ (NOT FOR IM USE) IV PRN (15:58)
[2017-07-24] MEDS: DEXTROSE 5% WATER 1,000 ML IV SCH (16:54)
[2017-07-24] MEDS ORDERED: CEFTRIAXONE 1 G PREMIX 50 ML IV SCH ×2 (17:15→18:00)
[2017-07-24 20:00] VITALS: BP 133/86
[2017-07-25] VITALS: BP 132/87
[2017-07-25 04:00] VITALS: BP 134/79
[2017-07-25] MEDS: DEXTROSE 5% WATER 1,000 ML IV SCH ×2 (06:04→18:25)
[2017-07-25 10:43] VITALS: BP 150/82
[2017-07-25 12:00] VITALS: BP_SYST 107; BP_SYST 167; BP_DIAS 79
[2017-07-25] MEDS ORDERED: DIGOXIN 500MCG/2ML AMP IV NR ×2 (12:12→14:17)
[2017-07-25] MEDS ORDERED: DOCU-150 PO (12:56)
[2017-07-25] MEDS ORDERED: ZINC SULFATE PO (12:56)
[2017-07-25] MEDS ORDERED: AMIODARONE PO (12:56)
[2017-07-25] MEDS ORDERED: BISA-81 PR (12:56)
[2017-07-25] MEDS ORDERED: ASCO500C6 PO (12:56)
[2017-07-25] MEDS ORDERED: MAGN400C PO (12:56)
[2017-07-25] MEDS ORDERED: DULO30CA2 PO (12:56)
[2017-07-25] MEDS ORDERED: ALLO100T PO (12:56)
[2017-07-25] MEDS ORDERED: AMLO5TAB4 PO (12:56)
[2017-07-25] MEDS ORDERED: IPRA0.2S51 NEB (12:56)
[2017-07-25] MEDS ORDERED: FAMO20TA8 PO (12:56)
[2017-07-25] MEDS ORDERED: TRAM50TA3 PO (12:56)
[2017-07-25] MEDS ORDERED: MULT-1146 PO (12:56)
[2017-07-25] MEDS ORDERED: HYDR-4134 PO (12:56)
[2017-07-25] MEDS ORDERED: ACET-2178 PO (12:56)
[2017-07-25] MEDS ORDERED: ONDA4TAB5 PO (12:56)
[2017-07-25] MEDS: MORPHINE SULFATE 4 MG/ML CPJ (NOT FOR IM USE) IV PRN (13:01)
[2017-07-25] MEDS: METHYLPREDNISOLONE SOD SUCC 40 MG/ML VIAL IV SCH ×2 (15:10→23:44)
[2017-07-25] MEDS: PANTOPRAZOLE SODIUM 40 MG/VIAL IV SCH (15:10)
[2017-07-25 16:00] VITALS: BP 135/89
[2017-07-25] MEDS: IPRATROPIUM BROMIDE (0.02%) 0.5MG/2.5ML NEB HHN SCH ×2 (16:02→21:34)
[2017-07-25] MEDS ORDERED: VANCOMYCIN 1250MG in DEXTROSE 5% WATER 250ML IV NR (16:30)
[2017-07-25] MEDS: PIPERACILLIN/TAZ 3.375G PREMIX 50 ML IV SCH ×2 (18:28→23:44)
[2017-07-25 20:00] VITALS: BP 139/90
[2017-07-26] VITALS: BP 142/85
[2017-07-26] MEDS: IPRATROPIUM BROMIDE (0.02%) 0.5MG/2.5ML NEB HHN SCH ×6 (00:37→20:45)
[2017-07-26 00:39] LABS: HEMATOCRIT. 31.3 % (36.0-48.0); HEMOGLOBIN. 9.9 g/dL (12.0-16.0); MEAN CORPUSCULAR HEMOGLOBIN 28.2 pg (28.0-32.0); MEAN CORPUSCULAR VOLUME 89.3 fL (81.0-99.0); MEAN PLATELET VOLUME 9.4 fl (7.4-10.4); PLATELET 174 x1000/uL (130-400); RED BLOOD CELL COUNT 3.51 mill/uL (4.2-5.4); RED CELL DISTRIBUTION WIDTH 20.3 % (11.6-14.6)
[2017-07-26 01:04] LABS: CARBON DIOXIDE 18 mEq/L (21-32); CHLORIDE 114 mEq/L (98-107)
[2017-07-26 04:00] VITALS: BP 157/93
[2017-07-26] MEDS: LACTULOSE 20G/30ML UDC PO SCH ×3 (06:00→22:00)
[2017-07-26 07:10] LABS: HEMATOCRIT. 32.9 % (36.0-48.0); HEMOGLOBIN. 10.5 g/dL (12.0-16.0); MEAN CORPUSCULAR HEMOGLOBIN 28.4 pg (28.0-32.0); MEAN CORPUSCULAR VOLUME 88.9 fL (81.0-99.0); MEAN PLATELET VOLUME 9.1 fl (7.4-10.4); PLATELET 195 x1000/uL (130-400); RED BLOOD CELL COUNT 3.71 mill/uL (4.2-5.4); RED CELL DISTRIBUTION WIDTH 19.9 % (11.6-14.6)
[2017-07-26 07:48] LABS: AMMONIA 96 uMol/L (<32)
[2017-07-26 08:00] VITALS: BP 145/92
[2017-07-26 08:16] LABS: NUCLEATED RED BLOOD CELLS 7 /100 WBC
[2017-07-26 08:17] LABS: PLATELET ESTIMATE NORMAL
[2017-07-26] MEDS: METHYLPREDNISOLONE SOD SUCC 40 MG/ML VIAL IV SCH ×2 (09:22→15:13)
[2017-07-26] MEDS: PANTOPRAZOLE SODIUM 40 MG/VIAL IV SCH (09:22)
[2017-07-26] MEDS ORDERED: VANCOMYCIN 750 MG PREMIX 150 ML IV SCH (11:00)
[2017-07-26 12:00] VITALS: BP 112/74
[2017-07-26] MEDS: PIPERACILLIN/TAZ 3.375G PREMIX 50 ML IV SCH (12:07)
[2017-07-26] MEDS: MORPHINE SULFATE 2 MG/ML CPJ (NOT FOR IM USE) IV PRN ×2 (15:13→22:27)
[2017-07-26] MEDS: DEXTROSE 5% WATER 1,000 ML IV SCH (15:24)
[2017-07-26 16:00] VITALS: BP 165/93
[2017-07-26 17:15] LABS: NUCLEATED RED BLOOD CELLS 12 /100 WBC; PLATELET ESTIMATE NORMAL
[2017-07-26] MEDS ORDERED: PIPERACILLIN/TAZ 2.25G PREMIX 50 ML IV SCH (18:00)
[2017-07-26] MEDS ORDERED: VANCOMYCIN 750 MG PREMIX 150 ML IV NR (18:00)
[2017-07-26 20:00] VITALS: BP 126/81
[2017-07-27] VITALS: BP 77/50
[2017-07-27] MEDS: IPRATROPIUM BROMIDE (0.02%) 0.5MG/2.5ML NEB HHN SCH (00:30)
[2017-07-27] MEDS ORDERED: FAMOTIDINE 20MG/2ML VIAL IV SCH (09:00)
== END 2017-07-27 03:30 | disposition expired | DRG 871 ==
LOC: ER 00:13 → 5WST 03:50 → EDBEDREQ 04:07 → ENRESERV 07:32
PROVIDERS: ADMIT Family Medicine; ATTEND Family Medicine
DX: A41.9 Sepsis, unspecified organism (principal); J96.00 Acute respiratory failure, unspecified whether with hypoxia or hypercapnia; N17.0 Acute kidney failure with tubular necrosis; J69.0 Pneumonitis due to inhalation of food and vomit; E43 Unspecified severe protein-calorie malnutrition; G92 Toxic encephalopathy; E87.0 Hyperosmolality and hypernatremia; C78.7 Secondary malignant neoplasm of liver and intrahepatic bile duct; E83.52 Hypercalcemia; I42.9 Cardiomyopathy, unspecified; N39.0 Urinary tract infection, site not specified; J98.11 Atelectasis; J44.0 Chronic obstructive pulmonary disease with (acute) lower respiratory infection; Z66 Do not resuscitate; C50.919 Malignant neoplasm of unspecified site of unspecified female breast; D63.8 Anemia in other chronic diseases classified elsewhere; R62.7 Adult failure to thrive; E86.0 Dehydration; I10 Essential (primary) hypertension; Z68.23 Body mass index [BMI] 23.0-23.9, adult; Z74.01 Bed confinement status; Z82.49 Family history of ischemic heart disease and other diseases of the circulatory system; Z79.899 Other long term (current) drug therapy
CPT/HCPCS: 36415; 36600; 70450; 71010; 80048; 80053; 80076; 80305; 81001; 82140; 82375; 82805; 83605; 83880; 84484; 85025; 87040; 92610; 93005; 93970; 94640; 96365; 96366; 99285; C9113; G0482; J0696; J1160; J1956; J2270; J2543; J2920; J3370; J7042; J7060; J7070